=== PATIENT | male | born 1960 | race Caucasian/White ===

== ENCOUNTER 2017-02-12 00:14 | Emergency (ER) | payer MEDICARE, MEDICAID ==
[~2017-02-12] VITALS: Ht 167.6 cm; Wt 127.0 kg
[~2017-02-12 00:14] MED LIST: AMITRIPTYLINE10 MG PO; ASPIRIN 81MG TA81 MG PO; BACTRIM DS 8001 TA1 PO; BRILINTA90 M1 PO; CELEXA 20MG TAB20 MG PO; DICLOFENAC 50MG50 MG PO; FISH OIL1000 MG PO; INSULIN GL100 UNITS/ SC; KEFLEX 500MG.500 MG PO; LIPITOR80 MG PO; LISINOPRIL40 MG PO; NITROGLYCERIN0.4 MG SL
--- NOTE | 2017-02-12 00:53 | Emergency Room Report ---
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 N Clinical Suspician of Infection? N Mental Status: 1 - Regular (Normal Baseline) Sepsis Risk:Low Sepsis Risk Have you (or family members/close friends) recently traveled outside the [place]? N If Yes, where/when: Have you had exposure to infectious disease within the past month? N TB? Other? Specify: Source patient, RN notes reviewed, family, old records Exam Limitations no limitations Comment pt with lt sided jewell today with no fever or trauma and no rash Cardiac Chest Pain Chest pain indicative of cardiac No Timing/Duration this evening Severity moderate ALLERGIES Coded Allergies: morphine (Severe, I-ITCHING 12/20/16) Uncoded Allergies: FLU VACCINE (Intermediate, I-HIVES 12/20/16) Home Medications Reported Medications Ticagrelor (Brilinta) 90 MG PO BID AMITRIPTYLINE HCL (Amitriptyline) 10 MG PO QHS OMEGA-3 FATTY ACIDS/FISH OIL (Fish Oil 1,000 MG Capsule) 1,000 MG PO DAILY ASPIRIN (Aspirin) 81 MG PO DAILY DICLOFENAC SODIUM (Diclofenac 50MG) 75 MG PO BID CITALOPRAM HYDROBROMIDE (Citalopram HBr) 20 MG PO DAILY NITROGLYCERIN (Nitrostat) 0.4 MG SL [id number] PRN angina Atorvastatin Calcium (Atorvastatin) 40 MG PO DAILY Lisinopril (Lisinopril 40MG) 30 MG PO DAILY INSULIN GLARGINE (Lantus 3ML Solostar Pen) (Unknown Dose) SC DAILY History Medical History General CAD? Yes Angina: No [place]: Yes Hypertension? Yes Hyperlipidemia? Yes CHF? No DVT? No PE? No COPD? No Asthma? No Anemia? No GERD? No Gastric ulcers? No GI Bleed? No Hernia? No Thyroid Problems? No Hypothyroidism? No CVA? Yes Seizures? Yes Diabetes? Yes Insulin Dependent: Yes Insulin Pump: No Home FSBS? Yes Renal Insuffiency? No End Stage Renal Disease? No UTI? No Stones? No BPH? No GB Disease: No Nephritic Syndrome? No Asplenia? No Hepatitis? No Sickle Cell Disease? No Arthritis? No Migraines? No Cataracts? No Glaucoma? No MRSA? No HIV? No TB? No Anxiety? No Depression? No Cancer? No Immunization Hx DT/Tetanus 1-4 Years Ago Surgical Hx Previous Surgery?Y LEFT toe amputation Social History Smoking Hx Smoker: Never Smoker Tobacco: No Type Cigarettes Alcohol Alcohol: No Drugs none Review of Systems All Other Systems Reviewed and Negative Constitutional denies fever Eyes denies drainage ENT denies: ear discharge, nose discharge, mouth pain, loose teeth. Respiratory denies cough, denies shortness of breath, denies wheezing Cardiovascular denies chest pain, denies syncope Gastrointestinal denies abdominal pain, denies constipation, denies diarrhea, denies vomiting Genitourinary denies: dysuria, frequency, hesitancy. Musculoskeletal denies back pain, denies joint pain, denies joint swelling, denies neck pain Skin denies rash Psychiatric/Neurological see HPI, headache, denies seizure Physical Exam Vital Signs Vital Signs Date Time Temp Pulse Resp B/P Pulse O2 O2 Flow FiO2 Ox Delivery Rate 02/12 0219 64 24 129/65 97 02/12 0207 16 02/12 0017 98.6 69 20 134/70 97 - WBC >12,000 or <4,000 or 10% bands? 2 or more SIRS Criteria Met? B/P:129/65 MAP:91 Creatinine >2.0? UA output<0.5ml/kg/hr for 2 hrs? Platelet count >100,000? Lactate >2.0mmol/1? INR >1.2 or PTT > than 60 sec? Evidence of Organ Dysfunction? Provider documented clinical suspician of infection? N Sepsis Criteria Count: 1 Sepsis Risk: Low Sepsis Risk General Appearance no apparent distress Eye Exam - bilateral eye PERRL, bilateral eye EOMI Ear, Nose, Throat normal ENT inspection Neck supple Respiratory Status No: respiratory distress. 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 No Results/Orders Laboratory Tests 02/12/17 0120: Creatine Kinase 94, CK-MB (CK-2) Rel Index 1.5, CK and CKMB Interp 1.4, Troponin I < 0.02, ESR 66 H 02/12/17 0120: Sodium 137, Potassium 4.4, Chloride 100, Carbon Dioxide 29, BUN 12, Creatinine 0.9, Estimated Creat Clear 161, Estimated GFR (MDRD) 87, Glucose 183 H, Calcium 8.9, Total Bilirubin 0.9, AST 34, ALT 37, Alkaline Phosphatase 113, Total Protein 8.3 H, Albumin 3.7, Globulin 4.6 H, Albumin/Globulin Ratio 0.8 L, WBC 8.5, RBC 3.84 L, Hgb 11.8 L, Hct 35.6 L, MCV 92.6, RDW 14.7, Plt Count 184, MPV 9.1, Gran % 57.9, Gran # 4.9, Lymphocytes % 33.5, Monocytes % 6.2, Eosinophils % 2.0, Basophils % 0.5, Lymphocytes # 2.8, Monocytes # 0.5, Eosinophils # 0.2, Basophils # 0.0, PUBS MCHC 33.2, MCH 30.7 Current Medication Orders Sig/Saima Start time Last Medication Dose Route Stop Time Status Admin Ketorolac 30 MG ONCE ONE 02/125 DC 02/12 Tromethamine IV 02/13 216 0207 Ketorolac 0 .STK-MED ONE 02/12 0204 DC Tromethamine .ROUTE Sodium Chloride 10 ML PRN PRN 02/12 0030 AC IV 02/13 0028 Orders Procedure Date/time Status DIET-NOTHING BY MOUTH 02/12 B Active SED RATE 02/12 0055 Complete CARDIAC ENZYMES 02/[address] HEAD W/O CONTRAST 02/[address] HEAD REQ 02/12 0029 Active IV SALINE LOCK 02/12 0029 Active CBC WITH AUTO DIFF 02/12 002 Complete CHEM 12 PROFILE 02/12 002 Complete XRAY/CT/US XRAY/CT/US CT head CT interpretation by discussed w/radiologist Time results known: 249 CT Results normal/NAD Departure Departure Time of Disposition 025 Disposition DC Home or Self Care(routine) Clinical Impression Primary Impression: Headache Qualifiers: Headache type: unspecified Headache chronicity pattern: acute headache Intractability: not intractable Qualified Code: R51 - Headache Condition STABLE Referrals Johnathan MERCER,Adalid Hartmann (Family) Patient Instructions DI for Headache Additional Instructions use meds and see pcp for follow up Discharge Counseling Counseled pt/family regarding diagnosis, test results, medications/RX, follow up needs Prescriptions Current Visit Scripts Prednisone (Prednisone 20MG) 20 MG PO BID #10 TAB ED Critical Care Critical Care No at 0251
[2017-02-12 01:30] LABS: HEMOGLOBIN 11.8 g/dL (14.1-18.0); LYMPH # 2.8 K/mm3 (0.7-4.5); LYMPH % 33.5 % (10-50)
[2017-02-12] MEDS ORDERED: PREDNISONE 20MG20 MG PO (02:51)
[2017-02-12 03:09] VITALS: BP 109/62
--- NOTE | 2017-02-12 06:34 | RADIOLOGY REPORT PS360 ---
CT HEAD W/O CONTRAST HISTORY: Severe left-sided occipital/parietal headache HEADACHE ORDERING PHYSICIAN: Marco Mann MD PATIENT AGE: 56 years COMPARISON: None TECHNIQUE: Axial images obtained without contrast. Brain and bone windows reviewed. FINDINGS: No midline shift, mass effect, intracranial hemorrhage, hydrocephalus, or extra-axial fluid collection is evident. Slight decreased periventricular white matter attenuation in the left parietal lobe nonspecific The calvarium has an unremarkable appearance. There is partial opacification of the right mastoid sinus and middle ear. IMPRESSION: 1. Nonspecific hypoattenuation in the deep white matter left parietal area and may be related to ischemic gliotic change from microvascular disease. MRI may provide further evaluation. 2. Right mastoid and middle ear disease
== END 2017-02-12 03:37 | disposition home or self-care (01) ==
LOC: ER 00:14
PROVIDERS: Emergency Medicine
DX: R51 Headache (principal); I10 Essential (primary) hypertension; I25.10 Atherosclerotic heart disease of native coronary artery without angina pectoris; E11.9 Type 2 diabetes mellitus without complications; Z79.4 Long term (current) use of insulin; Z79.899 Other long term (current) drug therapy

== ENCOUNTER 2017-05-26 18:37 | Emergency (ER) | payer MEDICARE, MEDICAID ==
[~2017-05-26] VITALS: Ht 167.6 cm; Wt 99.8 kg
[~2017-05-26 18:37] MED LIST changes: +PREDNISONE 20MG20 MG PO
--- NOTE | 2017-05-26 18:51 | Emergency Room Report ---
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 ARRIVES TO HOSPITAL WITH BS 135 MG/DL UPON EMS CHECK. 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 N Clinical Suspician of Infection? N Mental Status: 2 - Mildly Altered Sepsis Risk:Low Sepsis Risk Have you (or family members/close friends) recently traveled outside the [place]? N If Yes, where/when: Have you had exposure to infectious disease within the past month? TB? Other? Specify: Patient complains of feeling weak and lightheaded and sweaty today he denies any pain no complaint of headache chest pain or abdominal pain he denies any nausea vomiting diarrhea and states he is a little bit of cough denies fevers or chills. States he thought his blood sugar might be low but when they measured it was within normal limits. ALLERGIES Coded Allergies: morphine (Severe, I-ITCHING 05/26/17) Uncoded Allergies: FLU VACCINE (Intermediate, I-HIVES 12/20/16) Home Medications Active Scripts Prednisone (Prednisone 20MG) 20 MG PO BID #10 TAB Prov: 02/12/17 Reported Medications Ticagrelor (Brilinta) 90 MG PO BID AMITRIPTYLINE HCL (Amitriptyline) 10 MG PO QHS OMEGA-3 FATTY ACIDS/FISH OIL (Fish Oil 1,000 MG Capsule) 1,000 MG PO DAILY ASPIRIN (Aspirin) 81 MG PO DAILY DICLOFENAC SODIUM (Diclofenac 50MG) 75 MG PO BID CITALOPRAM HYDROBROMIDE (Citalopram HBr) 20 MG PO DAILY NITROGLYCERIN (Nitrostat) 0.4 MG SL [id number] PRN angina Atorvastatin Calcium (Atorvastatin) 40 MG PO DAILY Lisinopril (Lisinopril 40MG) 30 MG PO DAILY INSULIN GLARGINE (Lantus 3ML Solostar Pen) (Unknown Dose) SC DAILY (Lonnie MERCER, Wali) History Medical History General CAD? Yes Angina: No [place]: Yes Hypertension? Yes Hyperlipidemia? Yes CHF? No DVT? No PE? No COPD? No Asthma? No Anemia? No GERD? No Gastric ulcers? No GI Bleed? No Hernia? No Thyroid Problems? No Hypothyroidism? No CVA? Yes Seizures? Yes Diabetes? Yes Insulin Dependent: Yes Insulin Pump: No Home FSBS? Yes Renal Insuffiency? No End Stage Renal Disease? No UTI? No Stones? No BPH? No GB Disease: No Nephritic Syndrome? No Asplenia? No Hepatitis? No Sickle Cell Disease? No Arthritis? No Migraines? No Cataracts? No Glaucoma? No MRSA? No HIV? No TB? No Anxiety? No Depression? No Cancer? No Immunization Hx Ped.Immunizations UTD Yes DT/Tetanus 1-4 Years Ago Surgical Hx Previous Surgery?Y LEFT toe amputation Social History Smoking Hx Smoker: Never Smoker Tobacco: No Alcohol Alcohol: No (Wali Fleming MD) Review of Systems All Other Systems Reviewed and Negative (Wali Fleming MD) Physical Exam Vital Signs Vital Signs Date Time Temp Pulse Resp B/P Pulse O2 O2 Flow FiO2 Ox Delivery Rate 05/26 2003 68 18 159/71 99 05/26 1838 97.0 73 18 150/98 100 General Appearance: Nontoxic fatigued Head: Normocephalic, without obvious abnormality, atraumatic. Eyes: conjunctiva/corneas clear ENT: Mucous membranes somewhat dry Neck: No jugular venous distention. Cardiac: regular rate and rhythm Lungs: Clear to auscultation bilaterally Abdomen: Nontender, Nondistended, positive bowel sounds, no rebound : No CVA tenderness Extremities: no edema Musculoskeletal: No chest wall tenderness Skin: No rashes or lesions to exposed skin. Neurologic: Alert. No gross focal deficits Psychiatric: Normal affect (Wali Fleming MD) General Appearance normal appearance Respiratory Status No: respiratory distress. Cardiovascular normal exam Neurologic alert (Wali Fleming MD) Medical Decision Making LABS/Meds/Orders Pt receiving controlled substance in ED? No Comment 304 workup as come back unremarkable. Chest x-ray read by myself I don't note any acute disease no infiltrate Urinalysis is the only thing pending patient has some weakness perhaps a viral syndrome he is afebrile with not consistent with a flu but is likely a viral syndrome and will have my colleague follow-up the urinalysis and write an antibiotic prescription if need be Results/Orders Laboratory Tests 05/26/171954: Urine Color YELLOW, Urine Appearance CLEAR, Urine pH 6.0, Ur Specific [place] 1.010, Urine Protein NEGATIVE, Urine Ketones NEGATIVE, Urine Blood NEGATIVE, Urine Nitrate NEGATIVE, Urine Bilirubin NEGATIVE, Urine Urobilinogen 0.2, Ur Leukocyte Esterase NEGATIVE, Urine Glucose NEGATIVE 05/26/171849: Sodium 136, Potassium 4.1, Chloride 99, Carbon Dioxide 28, BUN 10, Creatinine 0.9, Estimated Creat Clear 125, Estimated GFR (MDRD) 86, Glucose 149 H, Calcium 9.2, Total Bilirubin 0.7, AST 30, ALT 32, Alkaline Phosphatase 120 H, Creatine Kinase 114, CK-MB (CK-2) Rel Index 1.2, CK and CKMB Interp 1.4, Troponin I < 0.02, Total Protein 8.6 H, Albumin 3.9, Globulin 4.7 H, Albumin/Globulin Ratio 0.8 L, WBC 10.8, RBC 4.52 L, Hgb 13.3 L, Hct 40.2 L, MCV 88.9, RDW 14.2, Plt Count 180, MPV 8.9, Gran % 69.2, Gran # 7.5, Lymphocytes % 21.0, Monocytes % 7.0 , Eosinophils % 2.4, Basophils % 0.5, Lymphocytes # 2.3, Monocytes # 0.8, Eosinophils # 0.3, Basophils # 0.1, PUBS MCHC 33.1, MCH 29.5 Current Medication Orders Sig/Saima Start time Last Medication Dose Route Stop Time Status Admin Sodium Chloride 1,000 ML .STK-MED ONE 05/26 1917 DC IV Sodium Chloride 1,000 ML .Q1H1M 05/26 1900 DC 05/26 IV 05/26 Sodium Chloride 10 ML PRN PRN 05/26 1900 AC IV 05/27 1851 Sodium Chloride 10 ML PRN PRN 05/26 1845 AC IV 05/27 1844 Orders Procedure Date/time Status URINALYSIS/COMPLETE 05/26 1850 Complete ELECTROCARDIOGRAM REQUEST 05/26 1844 Active CHEST(2 VIEWS-NOT PORTABLE) 05/26 1844 Active IV SALINE LOCK 05/26 1844 Active CBC WITH AUTO DIFF 05/26 1844 Complete CARDIAC ENZYMES 05/26 1844 Complete CHEM 12 PROFILE 05/26 1844 Complete Departure Departure Time of Disposition 1951 Disposition DC Home or Self Care(routine) Clinical Impression Primary Impression: Weakness Condition STABLE Referrals Johnathan MERCER,Adalid Hartmann (Family) Patient Instructions DI for Dizziness-Nonvertigo Additional Instructions follow up with family doctor, return if worse Discharge Counseling Counseled pt/family regarding diagnosis, test results, R/B of controlled subst., medications/RX, home care, follow up needs Prescriptions Current Visit Scripts Ondansetron (Zofran 4MG Odt) 4 MG PO Q6HP PRN NAUSEA AND VOMITING #10 ODT ED Critical Care Critical Care No (Lonnie MERCER, Wali) at 1956 at 2022
--- OUTSIDE RECORDS SUMMARY | 2017-05-26 18:57 | External Medical Summary Rpt | CCD ---
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 Phone [facility] Unavailable Unavailable P[facility], [facility] Unavailable Unavailable SERVICE, [facility] & Unavailable Unavailable DUBILIER, [facility]UB[facility], Unavailable Unavailable [facility] Unavailable Unavailable LAB, [facility] Unavailable Unavailable DIAGNOSTIC SE, [facility] Unavailable Unavailable TRANSPORTATION SER, [facility] AND Unavailable Unavailable HEPATOL, [facility] Unavailable Unavailable HOSPITA, [facility] Unavailable Unavailable EMS, [facility] Unavailable Unavailable INC, [facility] Unavailable Unavailable EQUIPMENT, [facility] Unavailable Unavailable GROUP PS, [facility] Unavailable Unavailable IMAGING ASS, [facility] [place] [place] NURSE Unavailable Unavailable PRACTITIONER GR, S NURSE PRACTITIONER GR [facility] Unavailable Unavailable [facility], [facility] Unavailable Unavailable HOLDINGS, [facility], Unavailable Unavailable [facility], Unavailable Unavailable PLLC, [facility], [facility] Unavailable Unavailable EQUIPME, [facility] Un[facility] Unavailable EMERGENCY PH[facility], [facility] Unavailable Unavailable EMERGENCY SERVI, [facility] Unavailable Unavailable PHYSICIAN SERVI, [facility] Unavailable [facility], [facility] Purpose Continuity of Care Document - 12-24-2013 through 2016 Problems Code Diagnosis DOS Provider Status E785 HYPERLIPIDE 03-10-2017 [facility] UNSPECIFIED LAB I10 ESSENTIAL 03-10-2017 [facility] HYPERTENSIO LAB N R7301 IMPAIRED 09-21-2017 [facility] GLUCOSE LAB E1165 TYPE 2 03-04-2017 [facility] WITH HYPERGLYCEM IA Z794 HALFWAY 03-04-2017 [facility] OF INSULIN [facility]ATION E119 TYPE 2 02-12-2017 [facility] DI[facility]ETES [facility] MELLITUS INC WITHOUT COMPLICATIO NS H9209 OTALGIA 02-12-2017 [facility] UNSPECIFIED AMBULANCE EAR SERVICE I2510 ASHD [place] [facility]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 [facility] ARTERY W/O INC ANGINA PECTORIS R51 HEADACHE 02-12-2017 [facility] SANCHEZ PLLC R9082 WHITE 02-12-2017 [place] [facility] DISEASE IMAGING ASS UNSPECIFIED O78457 OTHER LONG 02-12-2017 [facility] TERM [facility] CURRENT INC DRUG THERAPY R69 ILLNESS 01-14-2017 [facility] UNSPECIFIED TRANSPORTAT ION SER R80090 NON-PRESS 12-29-2016 [facility] CHRONIC [facility] ULCER RT INC THIGH W/UNS SEVERITY W13242 NON-PRSS 12-29-2016 [facility] CHR ULCR [facility] UNS PART RT INC LOW LEG UNS SEV G66915 TYPE 2 12-20-2016 [facility], [facility] PLL WITH FOOT ULCER N96780 TYPE 2 12-20-2016 [facility] DIABETES [facility] MELLITUS INC WITH OTHER SKIN ULCER D99205 NON-PRESS 12-20-2016 [facility] CHRONIC [facility] ULCER RT INC CALF W/UNS SEVERITY U93735 PAIN IN 12-20-2016 [place] RIGHT LOWER MEDICAL LEG IMAGING ASS M7989 OTHER 12-20-2016 [place] SPECIFIED MEDICAL SOFT TISSUE IMAGING ASS DISORDERS [id number] UNSPECIFIED 12-20-2016 [facility] OPEN WOUND AMBULANCE RT LOWER SERVICE LEG INITIAL ENC E109 TYPE 1 12-09-2016 [facility] DI[facility]ETES HOME MELLITUS MEDICAL WITHOUT EQUIPME COMPLICATIO NS E11.65 TYPE 2 11-29-2016 DIABETES MELLITUS WITH HYPERGLYCEM IA E78.00 PURE 11-29-2016 HYPERCHOLES TEROLEMIA, UNSPECIFIED I10 ESSENTIAL 11-29-2016 (PRIMARY) HYPERTENSIO N 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 R07.89 OTHER CHEST 11-29-2016 PAIN R07.9 CHEST PAIN, 11-29-2016 UNSPECIFIED Z86.73 PERSONAL 11-29-2016 HISTORY OF TRANSIENT ISCHEMIC ATTACK (TIA), AND CEREBRAL INFARCTION WITHOUT RESIDUAL DEFICITS Z87.442 PERSONAL 11-29-2016 HISTORY OF URINARY CALCULI Z88.5 ALLERGY 11-29-2016 STATUS TO NARCOTIC AGENT STATUS Z88.7 ALLERGY 11-29-2016 STATUS TO SERUM AND VACCINE STATUS Z95.5 PRESENCE OF 11-29-2016 CORONARY ANGIOPLASTY IMPLANT AND GRAFT R0602 SHORTNESS 11-22-2016 [facility]- OF BREATH [facility] EMS R072 PRECORDIAL 11-22-2016 [facility] PAIN N EMERGENCY SERVI R0789 OTHER CHEST 11-22-2016 [facility] [place] [facility] R7309 OTHER 11-22-2016 [facility] ABNORMAL [facility] GLUCOSE EMS E78.5 HYPERLIPIDE 11-09-2016 [facility], UNSPECIFIED E83.42 HYPOMAGNESE 11-09-2016 [facility] E87.6 HYPOKALEMIA 11-09-2016 F32.9 MAJOR 11-09-2016 DEPRESSIVE DISORDER, SINGLE EPISODE, UNSPECIFIED I42.9 CARDIOMYOPA 11-09-2016 THY, UNSPECIFIED K21.9 GASTRO-ESOP 11-09-2016 [facility] REFLUX DISEASE WITHOUT ESOPHAGITIS E11.9 TYPE 2 10-14-2016 DIABETES ME[facility]US WITHOUT COMPLICATIO NS L02.31 CUTANEOUS 10-14-2016 ABSCESS OF BUTTOCK L98.9 DISORDER OF 10-14-2016 THE SKIN AND SUBCUTANEOU S TISSUE, UNSPECIFIED 25618 DIAB W/O 02-26-2015 [facility] [place] [place] NURSE COMP TYPE PRACTITIONE II/UNS NOT R GR STATED UNCNTRL 6824 CELLULITIS& 02-26-2015 [facility] [place] [place] NURSE ABSCESS OF PRACTITIONE HAND EXCEPT R GR FINGERS&JUSTEN MB 2761 HYPOSMOLALI 01-22-2015 [facility] TY AND/OR N PHYSICIAN HYPONATREMI SERVI A 2767 HYPERPOTASS 01-22-2015 [facility] EMIA N PHYSICIAN SERVI 5303 STRICTURE 01-22-2015 [place] AND [facility]ESTH[facility] STENOSIS OF GROUP PS ESOPHAGUS 53015 ATROPHIC 01-22-2015 [facility] & WITHOUT DUBILIER MENTION OF HEMORRHAGE 98467 UNS 01-22-2015 [place] GASTRITIS&G ANESTHESIA ASTRODUODIT GROUP PS IS W/O MENTION HEMORR 5849 ACUTE 01-22-2015 [facility] KIDNEY N PHYSICIAN FAILURE SERVI UNSPECIFIED 24635 CHEST PAIN 01-22-2015 [facility] UNSPECIFIED N PHYSICIAN SERVI 25653 DYSPHAGIA 01-22-2015 [facility] UNSPECIFIED OLOGY AND HEPATOL 2762 ACIDOSIS 01-21-2015 [facility] PSC 7808 GENERALIZED 01-20-2015 [place] [address] NAUSEA WITH 01-20-2015 [facility] VOMITING N EMERGENCY SERVI 8830 OPEN WOUND 01-15-2015 [facility] FINGER [place] WITHOUT [facility] MENTION COMPLICATIO N 8930 OPEN WOUND 01-15-2015 [facility] TOE WITHOUT [place] MENTION [facility] COMPLICATIO N 0539 HERPES 12-15-2014 [facility] ZOSTER [place] [facility] MENTION OF COMPLICATIO N 1110 PITYRIASIS 12-15-2014 [facility] VERSICOLOR [place] [facility] 7099 UNSPECIFIED 12-15-2014 [facility] DISORDER [place] OF [facility] SKIN&SUBCUT ANEOUS TISSUE 2798 OTHER SPEC 11-21-2014 [facility] DISORDERS [place] INVOLVING [facility] IMMUNE MECHANISM 4019 UNSPECIFIED 11-21-2014 [facility] ESSENTIAL [place] HYPERTENSIO LLC N 35501 DIAB 11-03-2014 [facility] W/NEURO [place] MANIFESTS [facility] TYPE II/UNS NOT UNCNTRL 2724 OTHER AND 11-03-2014 [facility] UNSPECIFIED [place] [facility] HYPERLIPIDE [place] 46915 OBESITY, 11-03-2014 [facility] UNSPECIFIED [place] [facility] 3572 POLYNEUROPA 11-03-2014 [facility] THY IN [place] [facility] 80599 COR 10-13-2014 [facility] ATHEROSLERO [place] [facility]NSPEC [facility] TYPE VESSEL [place] [facility] [place] T [address] ESOPHAGEAL 10-13-2014 [facility] REFLUX [place] [facility] 7823 EDEMA 10-13-2014 [facility] 54874 ORTHOPNEA 10-11-2014 [facility] 43911 ATHEROSLERO 09-26-2014 [facility] ART [facility] EXTREM DIAGNOSTIC W/INTERMIT SE CLAUDICAT 7295 PAIN IN 09-26-2014 [facility] SOFT [facility] [address] SWELLING OF 09-26-2014 [facility] LIMB [facility]BI[facility] DIAGNOSTIC SE 7859 OTHER 09-26-2014 [facility] SYMPTOMS MOBILE INVOLVING DIAGNOSTIC CARDIOVASCU SE LAR SYSTEM 514 PULMONARY 09-25-2014 [facility] CONGESTION MOBI[facility] AND DIAGNOSTIC HYPOSTASIS SE 7869 OTH 09-25-2014 [facility] SYMPTOMS MOBILE INVOLVING DIAGNOSTIC RESPIRATORY SE SYSTEM&CHES T 6829 CELLULITIS 08-26-2014 [facility] AND ABSCESS [place] OF LLC UNSPECIFIED SITE 30082 DIAB W/UNS 07-27-2014 [facility]- COMP TYPE TIFFANIE CO II/UNS NOT EMS STATED UNCNTRL 23467 CORONARY 07-27-2014 [facility] ATHEROSCLER COMMUNTIY [facility] [place] [facility] CORONARY ARTERY 43440 PAIN IN 07-27-2014 [facility] JOINT, COMMUNTIY SHOULDER HOSPITA REGION 81131 OTHER CHEST 07-27-2014 [facility] PAIN COMMUNTIY HOSPITA 83200 DIAB W/O 06-05-2014 [facility] COMP TYPE I MEDICAL [JUV] NOT EQUIPMENT STATED UNCNTRL 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 4011 ESSENTIAL 05-27-2014 [facility] N, BENIGN HOSPI 39774 INSOMNIA 04-15-2014 [facility] UNSPECIFIED [place] [facility] 7862 COUGH 04-15-2014 [facility] 7812 ABNORMALITY 04-05-2014 [facility] OF GAIT [facility] 4778 ALLERGIC 03-08-2014 [facility] RHINITIS [place] DUE TO LLC OTHER ALLERGEN 4660 ACUTE 2014 [facility] BRONCHITIS N EMERGENCY PHYS 04074 SHORTNESS 2014 [facility] OF BREATH N EMERGENCY PHYS 80871 OTHER 12-24-2013 [facility] MALAISE AND [place] FATIGUE [facility] 8920 OPEN WOUND 12-24-2013 [facility] FT NO TOE [place] ALONE [facility] WITHOUT MENTION COMP E11.622 TYPE 2 DIABETES MELLITUS WITH OTHER SKIN ULCER R51 HEADACHE Encounters Encounter Start End Date Code Location Performer Type Date HOSPITAL [facility] - [facility] - [facility] [place] [address] 5 [facility]
--- OUTSIDE RECORDS SUMMARY | 2017-05-26 18:57 | External Medical Summary Rpt | CCD ---
Author Author , DIOMEDES Organization DIOMEDES Address Unknown Phone [email or web address] Care Team Providers Care Blanchard Grinder Operator Name Role Phone [facility] Unavailable Unavailable [facility], [facility] Un[facility] Unavailable SERVICE, [facility] CHIPPS ALMAS & Unavailable Unavailable DUBILIER, CHIPPS ALMAS & DUBILIER [facility], Unavailable Unavailable [facility] Unavailable Unavailable LAB, [facility] Unavailable Unavailable DIAGNOSTIC SE, [facility] FED[facility]ATED Unavailable Unavailable TRANSPORTATION SER, [facility] GASTROENTEROLOGY AND Unavailable Unavailable HEPATOL, [facility] Unavailable Unavailable HOSPITA, [facility] Unavailable Unavailable EMS, [facility] Unavailable Unavailable INC, [facility] Unavailable Unavailable EQUIPMENT, [facility] Un[facility] Unavailable GROUP PS, [facility] Un[facility] Unavailable IM[facility]ING ASS, [facility] NURSE Unavailable Unavailable PRACTITIONER GR, S NURSE PRACTITIONER GR [facility] Un[facility], [facility] Unavailable Unavailable HOLDINGS, [facility], Unavailable Unavailable [facility], Unavailable Unavailable PLLC, [facility], [facility] Unavailable Unavailable EQUIPME, [facility] Unavailable Unavailable EMERGENCY PHYS, [facility] Unavailable Unavailable EMERGENCY SERVI, [facility] Unavailable Unavailable PHYSICIAN SERVI, [facility] PHYSICIAN SERVI [facility] Unavailable [facility] Purpose Continuity of Care Document - 12-24-2013 through 2016 Problems Code Diagnosis DOS Provider Status E785 HYPERLIPIDE 03-10-2017 [facility] UNSPECIFIED LAB I10 ESSENTIAL 03-10-2017 [facility] HYPERTENSIO LAB N R7301 IMPAIRED 09-21-2017 [facility] GLUCOSE LAB E1165 TYPE 2 03-04-2017 [place] [facility] WITH HYPERGLYCEM IA Z794 JAIL 03-04-2017 [place] [facility] CUR[facility] SERV OF INSULIN FOUNDATION E119 TYPE 2 02-12-2017 [facility] DIABETES MEM H[facility] ME[facility]ITUS INC WITHOUT COMPLICATIO NS H9209 OTALGIA 02-12-2017 [facility] UNSPECIFIED AMBULANCE EAR SERVICE I2510 ASHD [place]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 [facility] ARTERY W/O INC ANGINA PECTORIS R51 HEADACHE 02-12-2017 [facility] SANCHEZ PLLC R9082 WHITE 02-12-2017 [place] MATTER MEDICAL DISEASE IMAGING ASS UNSPECIFIED U86983 OTHER LONG 02-12-2017 [facility] TERM [facility] H[facility] CURRENT INC DRUG THERAPY R69 ILLNESS 01-14-2017 [facility] UNSPECIFIED TRANSPORTAT ION SER C03349 NON-PRESS 12-29-2016 [facility] CHRONIC [facility]OS[facility] ULCER RT INC THIGH W/UNS SEVERITY G39459 NON-PRSS 12-29-2016 [facility] CHR ULCR MEM HOSP UNS PART RT INC LOW LEG UNS SEV F25118 TYPE 2 12-20-2016 [facility]AN [facility]ANS, [facility]US PLL WITH FOOT ULCER B75156 TYPE 2 12-20-2016 [facility] DIABETES MEM HOSP MELLITUS INC WITH OTHER SKIN ULCER M24242 NON-PRESS 12-20-2016 [facility] CHRONIC [facility] ULCER RT INC CALF W/UNS SEVERITY Z36903 PAIN IN 12-20-2016 [place] RIGHT LOWER MEDICAL LEG IMAGING ASS M7989 OTHER 12-20-2016 [place] SPECIFIED MEDICAL SOFT TISSUE IMAGING ASS DISORDERS [id number] UNSPECIFIED 12-20-2016 [facility] OPEN WOUND AMBULANCE RT LOWER SERVICE LEG INITIAL ENC E109 TYPE 1 12-09-2016 [facility] HOME ME[facility]US MEDICAL WITHOUT EQUIPME COMPLICATIO NS E11.65 TYPE 2 11-29-2016 DIABETES MELLITUS WITH HYPERGLYCEM IA E78.00 PURE 11-29-2016 HYPERCHOLES TEROLEMIA, UNSPECIFIED I10 ESSENTIAL 11-29-2016 (PRIMARY) HYPERTENSIO N 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 I25.2 OLD [...] ANGIOPLASTY IMPLANT AND GRAFT R0602 SHORTNESS 11-22-2016 [facility]- OF BREATH [facility] EMS R072 PRECORDIAL 11-22-2016 [facility] PAIN N EMERGENCY SERVI R0789 OTHER CHEST 11-22-2016 [facility] [place] [facility] R7309 OTHER 11-22-2016 [facility] ABNORMAL [facility] GLUCOSE EMS E78.5 HYPERLIPIDE 11-09-2016 [facility], UNSPECIFIED E83.42 HYPOMAGNESE 11-09-2016 [facility] E87.6 HYPOKALEMIA 11-09-2016 F32.9 MAJOR 11-09-2016 DEPRESSIVE DISORDER, SINGLE EPISODE, UNSPECIFIED I42.9 CARDIOMYOPA 11-09-2016 THY, UNSPECIFIED K21.9 GASTRO-ESOP 11-09-2016 HAGE[facility] REFLUX DISEASE WITHOUT ESOPHAGITIS E11.9 TYPE 2 10-14-2016 DIABETES MELLITUS WITHOUT COMPLICATIO NS L02.31 CUTANEOUS 10-14-2016 ABSCESS OF BUTTOCK L98.9 DISORDER OF 10-14-2016 THE SKIN AND SUBCUTANEOU S TISSUE, UNSPECIFIED 54228 DIAB W/O 02-26-2015 [facility] NURSE COMP TYPE PRACTITIONE II/UNS NOT R GR STATED UNCNTRL 6824 CELLULITIS& 02-26-2015 [facility] NURSE ABSCESS OF PRACTITIONE HAND EXCEPT R GR FINGERS&JUSTEN MB 2761 HYPOSMOLALI 01-22-2015 [facility] TY AND/OR N PHYSICIAN HYPONATREMI SERVI A 2767 HYPERPOTASS 01-22-2015 [facility] EMIA N PHYSICIAN SERVI 5303 STRICTURE 01-22-2015 [place] AND ANESTHESIA STENOSIS OF GROUP PS ESOPHAGUS 00235 ATROPHIC 01-22-2015 [facility] GASTRITIS ALMAS & WITHOUT DUBILIER MENTION OF HEMORRHAGE 61218 UNS 01-22-2015 [place] GASTRITIS&G ANESTHESIA ASTRODUODIT GROUP PS IS W/O MENTION HEMORR 5849 ACUTE 01-22-2015 [facility] KIDNEY N PHYSICIAN FAILURE SERVI UNSPECIFIED 84608 CHEST PAIN 01-22-2015 [facility] UNSPECIFIED N PHYSICIAN SERVI 72297 DYSPHAGIA 01-22-2015 [facility] UNSPECIFIED OLOGY AND HEPATOL 2762 ACIDOSIS 01-21-2015 [facility] 7808 GENERALIZED 01-20-2015 [place] [address] NAUSEA WITH 01-20-2015 [facility] VOMITING N EMERGENCY SERVI 8830 OPEN WOUND 01-15-2015 [facility] FINGER [place] WITHOUT LLC MENTION COMPLICATIO N 8930 OPEN WOUND 01-15-2015 [facility] TOE WITHOUT [place] MENTION LLC COMPLICATIO N 0539 HERPES 12-15-2014 [facility] ZOSTER [place] WITHOUT LLC MENTION OF COMPLICATIO N 1110 PITYRIASIS 12-15-2014 [facility] VERSICOLOR [place] [facility] 7099 UNSPECIFIED 12-15-2014 [facility] DISORDER [place] OF LLC SKIN&SUBCUT ANEOUS TISSUE 2798 OTHER SPEC 11-21-2014 [facility] DISORDERS [place] INVOLVING LLC IMMUNE MECHANISM 4019 UNSPECIFIED 11-21-2014 [facility] ESSENTIAL [place] HYPERTENSIO LLC N 42835 DIAB 11-03-2014 [facility] W/NEURO [place] MANIFEST[facility] LLC TYPE II/UNS NOT UNCNTRL 2724 OTHER AND 11-03-2014 [facility] UNSPECIFIED [place] LLC HYPERLIPIDE [facility] 01936 OBESITY, 11-03-2014 [facility] UNSPECIFIED [place] LLC 3572 POLYNEUROPA 11-03-2014 [facility] THY IN [place] [facility] 77337 COR 10-13-2014 [facility] ATHEROSLERO [place] UNSPEC LLC TYPE VESSEL [place]/JUAN R T 43591 ESOPHAGEAL 10-13-2014 [facility] REFLUX [place] LLC 7823 EDEMA 10-13-2014 [facility] 83742 ORTHOPNEA 10-11-2014 LAB SHARON SHAKIR HOLDINGS 47550 ATHEROSLERO 09-26-2014 [facility] NATV ART [facility]BILE EXTREM DIAGNOSTIC W/INTERMIT SE CLAUDICAT 7295 PAIN IN 09-26-2014 EXPRESS SOFT MOBI[place] [address] SWELLING OF 09-26-2014 [facility] LIMB [facility]BILE DIAGNOSTIC SE 7859 OTHER 09-26-2014 EXPRESS SYMPTOMS MOBILE INVOLVING DIAGNOSTIC CARDIOVASCU SE LAR SYSTEM 514 PULMONARY 09-25-2014 [facility] CONGESTION MOBILE AND DIAGNOSTIC HYPOSTASIS SE 7869 OTH 09-25-2014 [facility] SYMPTOMS MOBILE INVOLVING DIAGNOSTIC RESPIRATORY SE SYSTEM&CHES T 6829 CELLULITIS 08-26-2014 [facility] AND ABSCESS [place] OF LLC UNSPECIFIED SITE 46990 DIAB W/UNS 07-27-2014 [facility]- COMP TYPE TIFFANIE CO II/UNS NOT EMS STATED UNCNTRL 13552 CORONARY 07-27-2014 [facility] ATHEROSCLER COMMUNTIY OSIS [place] HOSPITA CORONARY ARTERY 25982 PAIN IN 07-27-2014 [facility] JOINT, COMMUNTIY SHOULDER HOSPITA REGION 46453 OTHER CHEST 07-27-2014 [facility] PAIN COMMUNTIY HOSPITA 21665 DIAB W/O 06-05-2014 [facility] COMP TYPE I MEDICAL [JUV] NOT EQUIPMENT STATED UNCNTRL 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 4011 ESSENTIAL 05-27-2014 [facility] N, BENIGN HOSPI 18021 INSOMNIA 04-15-2014 [facility] UNSPECIFIED [place] LLC 7862 COUGH 04-15-2014 [facility] 7812 ABNORMALITY 04-05-2014 [facility] OF GAIT [facility] 4778 ALLERGIC 03-08-2014 [facility] RHINITIS [place] DUE TO LLC OTHER ALLERGEN 4660 ACUTE 2014 [facility] BRONCHITIS N EMERGENCY PHYS 05115 SHORTNESS 2014 [facility] OF BREATH N EMERGENCY PHYS 43371 OTHER 12-24-2013 [facility] MALAISE AND [place] FATIGUE LLC 8920 OPEN WOUND 12-24-2013 [facility] FT NO TOE [place] ALONE [facility] WITHOUT MENTION COMP E11.622 TYPE 2 DIABETES MELLITUS WITH OTHER SKIN ULCER R51 HEADACHE Encounters Encounter Start End Date Code Location Performer Type Date HOSPITAL [facility] [place] [address] 5 N OUTPATIEN [facility]
--- OUTSIDE RECORDS SUMMARY | 2017-05-26 18:58 | External Medical Summary Rpt | CCD ---
Demographics Preferred Language Upper Sorbian Marital Status Unknown Shinto Affiliation Unknown Race Unknown Ethnic Group Unknown Author Author , DIOMEDES HERCULES Address Unknown Phone [email or web address] Immunization Name Date Rout CVX Reac Dose Comm Prov Is Faci e tion ent ider Refu lity Give sed n Td 06-2 9 999 Hist H205 No H205 (brijesh -19 ori lt), 99 al Info adso rmat rbed ion - Sour ce Unsp ecif ied
--- OUTSIDE RECORDS SUMMARY | 2017-05-26 18:58 | External Medical Summary Rpt | CCD ---
Author Author , DIOMEDES Organization JAMEEMARIBEL Address Unknown Phone [email or web address] Care Team Providers Care Baseball Hand Sewer Name Role Phone [facility]available Unavailable PSC, [facility] Unavailable Unavailable SERVICE, [facility] CHIPPS ALMAS & Unavailable Unavailable DUBILIER, CHIPPS ALMAS & DUBILIER [facility], Unavailable Unavailable [facility] Unavailable Unavailable LAB, [facility] Unavailable Unavailable DIAGNOSTIC SE, [facility] FED[facility]ATED Unavailable Unavailable TRANSPORTATION SER, [facility] GASTROENTEROLOGY AND Unavailable Unavailable HEPATOL, [facility] Unavailable Unavailable HOSPITA, [facility] Unavailable Unavailable EMS, [facility] Unavailable Unavailable INC, [facility] Unavailable Unavailable EQUIPMENT, [facility] Unavailable Unavailable GROUP PS, [facility] Unavailable Unavailable IMAGING ASS, [facility] NURSE Unavailable Unavailable PRACTITIONER GR, [facility] NURSE PRACTITIONER GR [facility], [facility] SHARON SHAKIR Unavailable Unavailable HOLDINGS, [facility], Unavailable Unavailable [facility], Unavailable Unavailable [facility], [facility], [facility] Unavailable Unavailable EQUIPME[facility] Unavailable Unavailable EMERGENCY PHYS, [facility] Unavailable Unavailable EMERGENCY SERVI, [facility] Unavailable Unavailable PHYSICIAN SERVI, [facility] PHYSICIAN SERVI [facility] Unavailable [place] [facility], [facility] Purpose Continuity of Care Document - 12-24-2013 through 2016 Problems Code Diagnosis DOS Provider Status E785 HYPERLIPIDE 03-10-2017 [facility] UNSPECIFIED LAB I10 ESSENTIAL 03-10-2017 [facility] HYPERTENSIO LAB N R7301 IMPAIRED 03-10-2017 [facility] GLUCOSE LAB E1165 TYPE 2 03-04-2017 [place] [facility]OUNDATION WITH HYPERGLYCEM IA Z794 RADIOLOGY DIRECTOR 03-04-2017 [place] [facility] CURRENT USE SERV OF INSULIN FOUNDATION E119 TYPE 2 02-12-2017 [facility] DIABETES MEM HOSP MELLITUS INC WITHOUT COMPLICATIO NS H9209 OTALGIA 02-12-2017 [facility] UNSPECIFIED AMBULANCE EAR SERVICE I2510 ASHD [place]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 MEM HOS[facility] ARTERY W/O INC ANGINA PECTORIS R51 HEADACHE 02-12-2017 [facility] SANCHEZ, [facility] R9082 WHITE 02-12-2017 [place] MATTER MEDICAL DISEASE IMAGING ASS UNSPECIFIED E12669 OTHER LONG 02-12-2017 [facility] TERM [facility] CURRENT INC DRUG THERAPY R69 ILLNESS 01-14-2017 [facility] UNSPECIFIED TRANSPORTAT ION SER Q84871 NON-PRESS 12-29-2016 [facility] CHRONIC [facility] ULCER RT INC THIGH W/UNS SEVERITY X90533 NON-PRSS 12-29-2016 [facility] CHR ULCR MEM HOS[facility] UNS PART RT INC LOW LEG UNS SEV P98041 TYPE 2 12-20-2016 [facility] MORAN PHYSICIANS, [facility]US PLL WITH FOOT ULCER C79598 TYPE 2 12-20-2016 [facility] DIABETES MEM HOSP MELLITUS INC WITH OTHER SKIN ULCER V04008 NON-PRESS 12-20-2016 [facility] CHRONIC MEM HOS[facility] ULCER RT INC CALF W/UNS SEVERITY N01533 PAIN IN 12-20-2016 [place] RIGHT LOWER MEDICAL LEG IMAGING ASS M7989 OTHER 12-20-2016 [place] SPECIFIED MEDICAL SOFT TISSUE IMAGING ASS DISORDERS Z26197X UNSPECIFIED 12-20-2016 [facility] OPEN WOUND AMBULANCE RT LOWER SERVICE LEG INITIAL ENC E109 TYPE 1 12-09-2016 [facility] HOME MELLITUS MEDICAL WITHOUT EQUIPME COMPLICATIO NS R0602 SHORTNESS 11-22-2016 [facility]- OF BREATH [place] EMS R072 PRECORDIAL 11-22-2016 [facility] PAIN N EMERGENCY SERVI R0789 OTHER CHEST 11-22-2016 [facility] [place] [facility] R7309 OTHER 11-22-2016 [facility]- ABNORMAL [place] GLUCOSE EMS 07813 DIAB W/O 02-26-2015 [facility] NURSE COMP TYPE PRACTITIONE II/UNS NOT R GR STATED UNCNTRL 6824 CELLULITIS& 02-26-2015 [facility] NURSE ABSCESS OF PRACTITIONE HAND EXCEPT R GR FINGERS&JUSTEN MB 2531 HYPOSMOLALI 01-22-2015 [facility] TY AND/OR N PHYSICIAN HYPONATREMI SERVI A 2767 HYPERPOTASS 01-22-2015 [facility] EMIA N PHYSICIAN SERVI 5303 STRICTURE 01-22-2015 [place] [facility]ESTH[facility] STENOSIS OF GROUP PS ESOPHAGUS 71223 ATROPHIC 01-22-2015 [facility] GASTRITIS [facility]AS & WITHOUT DUBILIER MENTION OF HEMORRHAGE 19612 UNS 01-22-2015 [place] GASTRITIS&G ANESTHESIA ASTRODUODIT GROUP PS IS W/O MENTION HEMORR 5849 ACUTE 01-22-2015 [facility] KIDNEY N PHYSICIAN FAILURE SERVI UNSPECIFIED 63253 CHEST PAIN 01-22-2015 [facility] UNSPECIFIED N PHYSICIAN SERVI 05682 DYSPHAGIA 01-22-2015 [facility] UNSPECIFIED OLOGY AND HEPATOL 2762 ACIDOSIS 01-21-2015 [facility] PSC 7808 GENERALIZED 01-20-2015 [facility] [place] [address] NAUSEA WITH 01-20-2015 [facility] VOMITING N EMERGENCY SERVI 8830 OPEN WOUND 01-15-2015 [facility] FINGER [place] WITHOUT [facility] MENTION COMPLICATIO N 8930 OPEN WOUND 01-15-2015 [facility] TOE WITHOUT [place] MENTION [facility] COMPLICATIO N 0539 HERPES 12-15-2014 [facility] ZOSTER [place] WITHOUT [facility] MENTION OF COMPLICATIO N 1110 PITYRIASIS 12-15-2014 [facility] VERSICOLOR [place] [facility] 7099 UNSPECIFIED 12-15-2014 [facility] DISORDER [place] OF LLC SKIN&SUBCUT ANEOUS TISSUE 2798 OTHER SPEC 11-21-2014 [facility] DISORDERS [place] INVOLVING LLC IMMUNE MECHANISM 4019 UNSPECIFIED 11-21-2014 [facility] ESSENTIAL [place] HYPERTENSIO LLC N 53822 DIAB 11-03-2014 [facility] W/NEURO [place] MANIFESTS LLC TYPE II/UNS NOT UNCNTRL 2724 OTHER AND 11-03-2014 [facility] UNSPECIFIED [facility] HYPERLIPIDE [facility] 02871 OBESITY, 11-03-2014 [facility] UNSPECIFIED [facility] 3572 POLYNEUROPA 11-03-2014 [facility] THY IN [place] DIABETES LLC 66910 COR 10-13-2014 [facility] ATHEROSLERO [facility] UNSPEC LLC TYPE VESSEL [place] PASS/JUAN R T 01580 ESOPHAGEAL 10-13-2014 [facility] REFLUX [facility] 7823 EDEMA 10-13-2014 [facility] 91739 ORTHOPNEA 10-11-2014 LAB [facility] SHAKIR HOLDINGS 62600 ATHEROSLERO 09-26-2014 EXPRESS NATV ART MOBILE EXTREM DIAGNOSTIC W/INTERMIT SE CLAUDICAT 7295 PAIN IN 09-26-2014 EXPRESS SOFT MOBI[place] [address] SWELLING OF 09-26-2014 EXPRESS LIMB MOBILE DIAGNOSTIC SE 7859 OTHER 09-26-2014 EXPRESS SYMPTOMS MOBILE INVOLVING DIAGNOSTIC CARDIOVASCU SE LAR SYSTEM 514 PULMONARY 09-25-2014 [facility] CONGESTION MOBILE AND DIAGNOSTIC HYPOSTASIS SE 7869 OTH 09-25-2014 [facility] SYMPTOMS MOBILE INVOLVING DIAGNOSTIC RESPIRATORY SE SYSTEM&CHES T 6829 CELLULITIS 08-26-2014 [facility] AND ABSCESS [facility] UNSPECIFIED SITE 05956 DIAB W/UNS 07-27-2014 [facility]- COMP TYPE TIFFANIE CO II/UNS NOT EMS STATED UNCNTRL 46884 CORONARY 07-27-2014 [facility] ATHEROSCLER COMMUNTIY [facility] [facility] CORONARY ARTERY 36858 PAIN IN 07-27-2014 [facility] JOINT, COMMUNTIY SHOULDER HOSPITA REGION 98641 OTHER CHEST 07-27-2014 [facility] PAIN COMMUNTIY HOSPITA 84163 DIAB W/O 06-05-2014 [facility] COMP TYPE I MEDICAL [JUV] NOT EQUIPMENT STATED UNCNTRL 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 4011 ESSENTIAL 05-27-2014 [facility] N, BENIGN HOSPI 06704 INSOMNIA 04-15-2014 [facility] UNSPECIFIED [facility] 7862 COUGH 04-15-2014 [facility] 7812 ABNORMALITY 04-05-2014 [facility] OF GAIT [facility] 4778 ALLERGIC 03-08-2014 [facility] RHINITIS [place] DUE TO LLC OTHER ALLERGEN 4660 ACUTE 2014 [facility] BRONCHITIS N EMERGENCY PHYS 14488 SHORTNESS 2014 [facility] OF BREATH N EMERGENCY PHYS 43200 OTHER 12-24-2013 [facility] [facility] [place] FATIGUE [facility] 8920 OPEN WOUND 12-24-2013 [facility] FT NO TOE [facility] WITHOUT MENTION COMP Encounters Encounter Start End Date Code Location Performer Type Date HOSPITAL [address] [facility] - 7 7 [facility] [place] [address] 5 N [facility]
--- OUTSIDE RECORDS SUMMARY | 2017-05-26 18:58 | External Medical Summary Rpt | CCD ---
Author Author , DIOMEDES Organization [facility] Address Unknown Phone [email or web address] Care Team Providers Care Lead Sharepoint Developer Name Role Phone [facility] Unavailable Unavailable [facility], [facility] Unavailable [...] AND Unavailable Unavailable [facility]PAT[facility], [facility] Unavailable Unavailable HOSPITA, [facility] HOSPITA [facility] Unavailable Unavailable EMS, [facility] Unavailable Unavailable INC, [facility] Unavailable Unavailable EQUIPMENT, [facility] Unavailable GROUP PS, [facility] Unavailable Unavailable [facility], [facility] Un[facility] Unavailable PRACTITIONER GR, [facility]available [facility]available HOLDINGS, [facility], Unavailable Unavailable [facility], Unavailable Unavailable [facility], [facility], [facility] Unavailable Unavailable EQUIPME, [facility], [facility] Un[facility], [facility] Unavailable Unavailable PHYSICIAN SERVI, [facility]IC[facility] Unavailable [facility] Purpose Continuity of Care Document - 12-24-2013 through 2016 Problems Code Diagnosis DOS Provider Status E785 HYPERLIPIDE 03-10-2017 [facility] UNSPECIFIED LAB I10 ESSENTIAL 03-10-2017 [facility] HYPERTENSIO LAB N R7301 IMPAIRED 03-10-2017 [facility] GLUCOSE LAB E1165 TYPE 2 03-04-2017 [facility] WITH HYPERGLYCEM IA Z794 DYNAMICIST 03-04-2017 [place] [facility] CURRENT USE [facility] OF INSULIN [facility] E119 TYPE 2 02-12-2017 [facility] DIABETES [facility] INC WITHOUT COMPLICATIO NS H9209 OTALGIA 02-12-2017 [facility] UNSPECIFIED AMBULANCE EAR SERVICE I2510 ASHD SAMISH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 [facility] ARTERY W/O INC ANGINA PECTORIS R51 HEADACHE 02-12-2017 [facility] SANCHEZ, [facility] R9082 WHITE 02-12-2017 [place] [facility] UNSPECIFIED T79124 OTHER LONG 02-12-2017 [facility] TERM [facility] CURRENT INC DRUG THERAPY R69 ILLNESS 01-14-2017 [facility] UNSPECIFIED TRANSPORTAT ION SER P60169 NON-PRESS 12-29-2016 [facility] CHRONIC [facility] ULCER RT INC THIGH W/UNS SEVERITY A40880 NON-PRSS 12-29-2016 [facility] CHR ULCR [facility] UNS PART RT INC LOW LEG UNS SEV S86959 TYPE 2 12-20-2016 [facility], [facility] WITH FOOT ULCER N75289 TYPE 2 12-20-2016 [facility] WITH OTHER SKIN ULCER L18476 NON-PRESS 12-20-2016 [facility] CHRONIC [facility] ULCER RT INC CALF W/UNS SEVERITY X75122 PAIN IN 12-20-2016 [place] [facility] M7989 OTHER 12-20-2016 [place] SPECIFIED MEDICAL SOFT TISSUE IMAGING ASS DISORDERS [id number] UNSPECIFIED 12-20-2016 [facility] OPEN WOUND AMBULANCE RT LOWER SERVICE LEG INITIAL ENC E109 TYPE 1 12-09-2016 [facility] MEDICAL WITHOUT EQUIPME COMPLICATIO NS R0602 SHORTNESS 11-22-2016 [place]- OF BREATH TIFFANIE CO EMS R072 PRECORDIAL 11-22-2016 [facility] N EMERGENCY SERVI R0789 OTHER CHEST 11-22-2016 [facility] [place] [facility] RADIOLOGY R7309 OTHER 11-22-2016 [place]- ABNORMAL [facility]FF[facility] CO GLUCOSE EMS 18361 DIAB W/O 02-26-2015 [facility] NURSE COMP TYPE PRACTITIONE II/UNS NOT R GR STATED UNCNTRL 6824 CELLULITIS& 02-26-2015 [facility] NURSE ABSCESS OF PRACTITIONE HAND EXCEPT R GR FINGERS&JUSTEN MB 3791 HYPOSMOLALI 01-22-2015 [facility] TY AND/OR N PHYSICIAN HYPONATREMI SERVI A 2767 HYPERPOTASS 01-22-2015 [facility]IA N PHYSICIAN SERVI 5303 STRICTURE 01-22-2015 [place] AND ANESTHESIA STENOSIS OF GROUP PS ESOPHAGUS 46520 ATROPHIC 01-22-2015 [facility] GASTRITIS [facility] & WITHOUT DUBILIER MENTION OF HEMORRHAGE 22691 UNS 01-22-2015 [place] GASTRITIS&G ANESTHESIA ASTRODUODIT GROUP PS IS W/O MENTION HEMORR 5849 ACUTE 01-22-2015 [facility] KIDNEY N PHYSICIAN FAILURE SERVI UNSPECIFIED 70462 CHEST PAIN 01-22-2015 [facility] UNSPECIFIED N PHYSICIAN SERVI 87259 DYSPHAGIA 01-22-2015 [facility] UNSPECIFIED [facility]LOGY AND HEPATOL 2762 ACIDOSIS 01-21-2015 [facility] PSC 7808 GENERALIZED 01-20-2015 [facility] [place] [address] NAUSEA WITH 01-20-2015 [facility] VOMITING N EMERGENCY SERVI 8830 OPEN WOUND 01-15-2015 [facility] FINGER [place] WITHOUT [facility] MENTION COMPLICATIO N 8930 OPEN WOUND 01-15-2015 [facility] TOE WITHOUT [place] MENTION [facility] COMPLICATIO N 0539 HERPES 12-15-2014 [facility] ZOSTER [place] [facility] MENTION OF COMPLICATIO N 1110 PITYRIASIS 12-15-2014 [facility] VERSICOLOR [place] [facility] 7099 UNSPECIFIED 12-15-2014 [facility] DISORDER [place] OF LLC SKIN&SUBCUT ANEOUS TISSUE 2798 OTHER SPEC 11-21-2014 [facility] DISORDERS [place] [facility] IMMUNE MECHANISM 4019 UNSPECIFIED 11-21-2014 [facility] ESSENTIAL [place] HYPERTENSIO LLC N 40721 DIAB 11-03-2014 [facility] W/NEURO [place] [facility] TYPE II/UNS NOT UNCNTRL 2724 OTHER AND 11-03-2014 [facility] UNSPECIFIED [facility] HYPERLIPIDE [place] 80036 OBESITY, 11-03-2014 [facility] UNSPECIFIED [facility] 3572 POLYNEUROPA 11-03-2014 [facility] THY IN [place] [facility] 72995 COR 10-13-2014 [facility]ERO [facility]NS[facility] TYPE VESSEL SAMISH/JUAN R T 39053 ESOPHAGEAL 10-13-2014 [facility] REFLUX [facility] 7823 EDEMA 10-13-2014 [facility] 90725 ORTHOPNEA 10-11-2014 [facility] 08020 ATHEROSLERO 09-26-2014 [facility] NATV ART [facility]BILE EXTREM DIAGNOSTIC W/INTERMIT SE CLAUDICAT 7295 PAIN IN 09-26-2014 EXPRESS SOFT MO[place] [address] SWELLING OF 09-26-2014 [facility] LIMB MOBILE DIAGNOSTIC SE 7859 OTHER 09-26-2014 [facility] SYMPTOMS MOBILE INVOLVING DIAGNOSTIC CARDIOVASCU SE LAR SYSTEM 514 PULMONARY 09-25-2014 [facility] CONGESTION MOBILE AND DIAGNOSTIC HYPOSTASIS SE 7869 OTH 09-25-2014 [facility] SYMPTOMS MOBILE INVOLVING DIAGNOSTIC RESPIRATORY SE SYSTEM&CHES T 6829 CELLULITIS 08-26-2014 [facility] AND ABSCESS [facility] UNSPECIFIED SITE 80854 DIAB W/UNS 07-27-2014 [place]- COMP TYPE [place] CO II/UNS NOT EMS STATED UNCNTRL 41547 CORONARY 07-27-2014 [place] ATHEROSCLER [facility] CORONARY ARTERY 21219 PAIN IN 07-27-2014 [place] JOINT, COMM[facility]TIY [facility] REGION 42071 OTHER CHEST 07-27-2014 [place] PAIN COMMUNTIY HOSPITA 52221 DIAB W/O 06-05-2014 [facility] COMP TYPE I MEDICAL [JUV] NOT EQUIPMENT STATED UNCNTRL 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 4011 ESSENTIAL 05-27-2014 [facility] N, BENIGN HOSPI 74519 INSOMNIA 04-15-2014 [facility] UNSPECIFIED [facility] 7862 COUGH 04-15-2014 [facility] 7812 ABNORMALITY 04-05-2014 [facility] OF GAIT [facility] 4778 ALLERGIC 03-08-2014 [facility] RHINITIS [place] [facility]UE TO [facility] OTHER ALLERGEN 4660 ACUTE 2014 [facility] BRONCHITIS N EMERGENCY PHYS 87750 SHORTNESS 2014 [facility] OF BREATH N EMERGENCY PHYS 44310 OTHER 12-24-2013 [facility] [place] [facility] 8920 OPEN WOUND 12-24-2013 [facility] FT NO TOE [facility] WITHOUT MENTION COMP Encounters Encounter Start End Date Code Location Performer Type Date HOSPITAL [address] [facility] [place] [address] 5 N [facility] [place]
--- OUTSIDE RECORDS SUMMARY | 2017-05-26 18:58 | External Medical Summary Rpt | CCD ---
Demographics Preferred Language Romanian Marital Status Unknown Rastafarian Affiliation Unknown Race Unknown Ethnic Group Unknown Author Author , DIOMEDES HERCULES Address Unknown Phone [email or web address] Immunization Name Date Rout CVX Reac Dose Comm Prov Is Faci e tion ent ider Refu lity Give sed n Td 06-2 9 999 Hist H205 No H205 (brijesh -19 ori lt), 99 al Info adso rmat rbed ion - Sour ce Unsp ecif ied
[2017-05-26 19:05] LABS: LYMPH # 2.3 K/mm3 (0.7-4.5)
[2017-05-26 19:15] LABS: HEMOGLOBIN 13.3 g/dL (14.1-18.0)
[2017-05-26 19:31] LABS: BUN 10 mg/dL (7-18)
[2017-05-26 19:34] LABS: GFR (ESTIMATED) 86 ML/MIN (>60)
[2017-05-26] MEDS ORDERED: ZOFRAN ODT4 MG PO (19:56)
[2017-05-26 20:05] LABS: URINE BILIRUBIN - DIPSTICK NEGATIVE (NEG); URINE BLOOD NEGATIVE (NEG)
[2017-05-26 20:39] LABS: URINE SQUAMOUS CELLS OCC #/hpf (OCC)
[2017-05-26 21:09] VITALS: BP 139/77
--- NOTE | 2017-05-27 06:16 | RADIOLOGY REPORT PS360 ---
CHEST(2 VIEWS-NOT PORTABLE) HISTORY: WEAKNESS, SUDDEN ONSET ORDERING PHYSICIAN: Wali Fleming MD PATIENT AGE: 57 years COMPARISON: None available FINDINGS: The cardiomediastinal silhouette and pulmonary vascularity are within normal limits. The lungs are clear without infiltrates, suspicious nodules, or pleural effusions. No acute bony abnormalities. IMPRESSION: Negative chest, no acute finding
[2017-06-15] MEDS ORDERED: NOVOLOG MI100 UNITS/ SC (01:04)
[2017-06-15] MEDS ORDERED: PROVENTIL0.09 MG/A1 IH (01:07)
[2017-06-15] MEDS ORDERED: BREO ELLIPTA1 POW IH (01:08)
[2017-06-15] MEDS ORDERED: CARVEDILOL3.125 M1 PO (01:09)
[2017-06-15] MEDS ORDERED: ZOFRAN4 MG PO (05:00)
== END 2017-05-26 21:11 | disposition home or self-care (01) ==
LOC: ER 18:37
PROVIDERS: Emergency Medicine
DX: R53.1 Weakness (principal); I10 Essential (primary) hypertension; E11.8 Type 2 diabetes mellitus with unspecified complications; Z79.4 Long term (current) use of insulin; Z79.899 Other long term (current) drug therapy; Z79.82 Long term (current) use of aspirin; Z86.79 Personal history of other diseases of the circulatory system